=== PATIENT | male | born 1960 | race Caucasian/White ===

== ENCOUNTER → 2017-05-27 | Outpatient (CLI) | payer BC ==
[~2017-05-27] MED LIST: ASPIR-TRIN325 MG PO; PRAVACHOL PO; TOPROL XL PO
--- NOTE | ~2017-05-27 | US136 ---
[facility] A Service of [facility] RADIOLOGY TEXT RESULTS PATIENT: JENNIFER GREEN LOCATION: CNIV : 60 UNIT #: [id number] AGE: [address]: Deysi Hsu MD SEX: M ORDER DR: [id number] [address] [id number] [facility]. [place], [place] [address] [id number] O MR#: [id number] Acc #: [id number] NAME: JENNIFER GREEN : 1960 SEX: M STUDY DATE/TIME: 05/27/2017 8:35 UNIT: CNIV ROOM: STUDY DESCRIPTION: [facility] [employer] [facility] Attending Physician: Deysi Hsu M.D. Referring Physician: Deysi Hsu M.D. Ordering Physician: Deysi Hsu M.D. Primary Care Physician: Herlinda Nicole M.D. MEDICAL IMAGING REPORT This report is preliminary unless electronic signature is present EXAM Bilateral lower extremity ELAINE, 05/27/2017. HISTORY Peripheral arterial disease. FINDINGS The right brachial pressure is 168 and left is 166. The right dorsalis pedis pressure is 191, posterior tibial 178, for an ELAINE of 1.14 and a first toe pressure of 149 mmHg. The left dorsalis pedis pressure is 178, posterior tibial 185, for an ELAINE of 1.1 and a first toe pressure of 151 mmHg. PVR wave forms to the ankle level are intact and symmetric and normal bilaterally. First digital wave forms are intact and symmetric bilaterally. Arterial wave forms of the dorsalis pedis and posterior tibial arteries demonstrated triphasic wave forms at the right posterior tibial artery and dorsalis pedis artery. There are triphasic wave forms at the left dorsalis pedis and biphasic wave forms at the left posterior tibial artery. IMPRESSION No arterial insufficiency in either the right or the left lower extremity with adequate perfusion of the first toes. Dictated by... Deysi Hsu M.D. [facility] A Service of [facility] RADIOLOGY TEXT RESULTS PATIENT: JENNIFER GREEN LOCATION: CNIV : 60 UNIT #: [id number] AGE: [address]: Deysi Hsu MD SEX: M ORDER DR: THIS IS AN ELECTRONICALLY VERIFIED REPORT Deysi Hsu M.D. at 05/28/2017 8:50 AM Yaron TD: 05/27/2017 17:51 JOB #: [id number] MEDICAL IMAGING REPORT Page 1 of 1 COPY
== END | disposition home or self-care (01) ==
LOC: CNIV 08:18
DX: I73.9 Peripheral vascular disease, unspecified (principal)
CPT/HCPCS: 93922